=== PATIENT | male | born 1965 | race Two or more races ===

== ENCOUNTER 2017-09-17 16:31 | Inpatient (IN) | payer OTHER ==
[~2017-09-17] VITALS: Ht 175.3 cm; Wt 81.6 kg
[2017-09-17 16:42] VITALS: BP 148/111
[2017-09-17] MEDS ORDERED: Albuterol/Ipratropium 3ml neb HHN ONE (17:00)
--- NOTE | 2017-09-17 17:02 | Emergency Room Report ---
History of Present Illness General Chief Complaint: General Complaint Source: Patient Present Illness HPI Patient is a 52-year-old male who presented after increased cough and difficulty breathing. Patient reports having gradual onset of symptoms. He reports having increased subjective fever as well as increased night sweats. He states that he's been having increased pain to his right flank. He reports having prior history of kidney stones. The patient reports having increased sharp pain. Patient denies vomiting. He reports having taking cough medications which contain Tylenol earlier in the day. Allergies: Coded Allergies: No Known Allergies (Unverified , 09/17/17) Patient History Past Medical History: see triage record Reviewed Nursing Documentation: PMH: Agreed; PSxH: Agreed Nursing Documentation-PMH Past Medical History: No History, Except For Hx Gastrointestinal Problems: No - HERNIA, KIDNEY STONE Review of Systems All Other Systems: negative except mentioned in HPI Physical Exam Vital Signs Date Time Temp Pulse Resp B/P (MAP) Pulse Ox O2 Delivery O2 Flow Rate FiO2 09/17/17 16:33 97.7 97 20 145/94 94 Room Air 97.7 Sp02 EP Interpretation: reviewed, normal General Appearance: normal inspection, well appearing, no apparent distress, alert, GCS 15, non-toxic Head: atraumatic ENT: normal ENT inspection, hearing grossly normal, normal voice Neck: normal inspection, full range of motion, supple, no bony tend Respiratory: normal inspection, lungs clear, normal breath sounds, no respiratory distress, no retraction, no wheezing Cardiovascular #1: regular rate, rhythm, no edema Gastrointestinal: normal inspection, normal bowel sounds, non tender, soft, no guarding, no hernia Genitourinary: no CVA tenderness Musculoskeletal: normal inspection, back normal, normal range of motion Neurologic: normal inspection, alert, responsive, speech normal Psychiatric: normal inspection, judgement/insight normal, mood/affect normal Skin: normal inspection, normal color, no rash Medical Decision Making Diagnostic Impression: Primary Impression: Sepsis Additional Impressions: Right kidney stone Urinary tract infection ER Course patient presented for shortness of breath.Differential included but was not limited to anemia, pneumonia, pneumothorax, myocardial infarction, pericardial effusion, congestive heart failure, acidosis. Because of complexity of patient' s case laboratory testing and imaging studies were ordered.CT of abdomen and pelvis read by radiology showed 12 mm stone in the right renal pelvis without hydronephrosis thickening and distinctness of the wrist the only in the area and bilateral nephrolithiasis too small to characterize attenuation in the left kidney lung bases showed bibasilar atelectasis. The patient was noted to have elevated white blood count. Patient started on IV antibiotics blood cultures are obtained.Dr. Edward Maravilla was contacted for inpatient management. Dr. Jose Roberto Johnson was contacted for urology consult Labs Test 09/17/17 16:40 09/17/17 16:55 Urine Color Pale yellow Urine Appearance Clear Urine pH 6.5 (4.5-8.0) Urine Specific [place] 1.005 (1.005-1.035) Urine Protein 2+ (NEGATIVE) Urine Glucose (UA) Negative (NEGATIVE) Urine Ketones Negative (NEGATIVE) Urine Occult Blood 5+ (NEGATIVE) Urine Nitrite Negative (NEGATIVE) Urine Bilirubin Negative (NEGATIVE) Urine Urobilinogen Normal MG/DL (0.0-1.0) Urine Leukocyte Esterase 2+ (NEGATIVE) Urine RBC 5-10 /HPF (0 - 0) Urine WBC 2-4 /HPF (0 - 0) Urine Squamous Epithelial Cells None /LPF (NONE/OCC) Urine Bacteria Few /HPF (NONE) White Blood Count 19.1 K/UL (4.8-10.8) Red Blood Count 4.94 M/UL (4.70-6.10) Hemoglobin 15.4 G/DL (14.2-18.0) Hematocrit 43.4 % (42.0-52.0) Mean Corpuscular Volume 88 FL (80-99) Mean Corpuscular Hemoglobin 31.2 PG (27.0-31.0) Mean Corpuscular Hemoglobin Concent 35.5 G/DL (32.0-36.0) Red Cell Distribution Width 10.6 % (11.6-14.8) Platelet Count 217 K/UL (150-450) Mean Platelet Volume 7.9 FL (6.5-10.1) Neutrophils (%) (Auto) % (45.0-75.0) Lymphocytes (%) (Auto) % (20.0-45.0) Monocytes (%) (Auto) % (1.0-10.0) Eosinophils (%) (Auto) % (0.0-3.0) Basophils (%) (Auto) % (0.0-2.0) Differential Total Cells Counted 100 Neutrophils % (Manual) 75 % (45-75) Lymphocytes % (Manual) 15 % (20-45) Monocytes % (Manual) 9 % (1-10) Eosinophils % (Manual) 0 % (0-3) Basophils % (Manual) 0 % (0-2) Band Neutrophils 1 % (0-8) Platelet Estimate Adequate Platelet Morphology Normal Red Blood Cell Morphology Normal Sodium Level 136 MMOL/L (136-145) Potassium Level 4.0 MMOL/L (3.5-5.1) Chloride Level 102 MMOL/L (98-107) Carbon Dioxide Level 25 MMOL/L (21-32) Anion Gap 9 mmol/L (5-15) Blood Urea Nitrogen 15 mg/dL (7-18) Creatinine 0.8 MG/DL (0.55-1.30) Estimat Glomerular Filtration Rate > 60 mL/min (>60) Glucose Level 145 MG/DL (74-106) Lactic Acid Level 2.00 mmol/L (0.66-2.22) Calcium Level 9.7 MG/DL (8.5-10.1) Total Bilirubin 0.5 MG/DL (0.2-1.0) Aspartate Amino Transf (AST/SGOT) 28 U/L (15-37) Alanine Aminotransferase (ALT/SGPT) 47 U/L (12-78) Alkaline Phosphatase 78 U/L (46-116) Total Creatine Kinase 323 U/L (26-308) Creatine Kinase MB 1.5 NG/ML (0.0-3.6) Creatine Kinase MB Relative Index 0.4 Troponin I 0.000 ng/mL (0.000-0.056) Total Protein 8.8 G/DL (6.4-8.2) Albumin 3.8 G/DL (3.4-5.0) Globulin 5.0 g/dL Albumin/Globulin Ratio 0.8 (1.0-2.7) Last Vital Signs Date Time Temp Pulse Resp B/P (MAP) Pulse Ox O2 Delivery O2 Flow Rate FiO2 09/17/17 16:33 97.7 97 20 145/94 94 Room Air 97.7 Status: unchanged Disposition: ADMITTED INPATIENT Condition: Serious Scripts Unable to Obtain Active Prescriptions or Reported Meds Cristiano Escobar MD September 17, 2017 17:02
[2017-09-17 17:09] LABS: APPEARANCE,URINE CLEAR; BILIRUBIN, URINE NEGATIVE (NEGATIVE); COLOR,URINE PALE YELLOW; GLUCOSE, URINE (UA) NEGATIVE (NEGATIVE); KETONES,URINE NEGATIVE (NEGATIVE); LEUKOCYTE ESTERASE ,URINE 2+ (NEGATIVE); NITRITE,URINE NEGATIVE (NEGATIVE); PH,URINE 6.5 (4.5-8.0); PROTEIN,URINE 2+ (NEGATIVE); UROBILINOGEN,URINE NORMAL MG/DL (0.0-1.0)
[2017-09-17] MEDS: Isovue-300 100ml vial INJ PRN ×2 (17:13→18:57)
[2017-09-17 17:16] LABS: HEMATOCRIT 43.4 % (42.0-52.0); HEMOGLOBIN 15.4 G/DL (14.2-18.0); MEAN CORPUSCULAR VOLUME 88 FL (80-99); PLATELET COUNT 217 K/UL (150-450); RED BLOOD COUNT 4.94 M/UL (4.70-6.10); RED CELL DISTRIBUTION WIDTH 10.6 % (11.6-14.8); WHITE BLOOD COUNT 19.1 K/UL (4.8-10.8)
[2017-09-17 17:20] LABS: ANION GAP 9 mmol/L (5-15); BLOOD UREA NITROGEN 15 mg/dL (7-18); CALCIUM 9.7 MG/DL (8.5-10.1); CARBON DIOXIDE 25 MMOL/L (21-32); CHLORIDE 102 MMOL/L (98-107); CREATININE 0.8 MG/DL (0.55-1.30); SODIUM 136 MMOL/L (136-145)
[2017-09-17] MEDS ORDERED: cefTRIAXone 1 GM in NS 55 ML IVPB ONE (17:30)
[2017-09-17] MEDS ORDERED: Azithromycin 500 MG in D5W 275 ML IVPB ONE (17:30)
[2017-09-17 17:36] LABS: ALANINE AMINOTRANSFERASE 47 U/L (12-78); ALBUMIN 3.8 G/DL (3.4-5.0); ALBUMIN/GLOBULIN RATIO 0.8 (1.0-2.7); ALKALINE PHOSPHATASE 78 U/L (46-116); ASPARTATE AMINO TRANSFERASE 28 U/L (15-37); BILIRUBIN,TOTAL 0.5 MG/DL (0.2-1.0); CKMB 1.5 NG/ML (0.0-3.6); CREATINE KINASE 323 U/L (26-308)
--- NOTE | 2017-09-17 17:42 | Diagnostic Imaging Report ---
EXAM: XR Chest, 1 View CLINICAL HISTORY: SOB TECHNIQUE: Frontal view of the chest. COMPARISON: No relevant prior studies available. FINDINGS: Lungs: Reduced lung volumes. No consolidation. Patchy more bilateral atelectasis. Pleural space: Unremarkable. No pneumothorax. Heart: Large cardiomediastinal silhouette. Mediastinum: See above. Bones/joints: No acute fracture. IMPRESSION: Reduced lung volumes. No consolidation.
[2017-09-17 18:39] VITALS: BP 125/89
--- NOTE | 2017-09-17 19:21 | Diagnostic Imaging Report ---
EXAM: CT Abdomen and Pelvis With Intravenous Contrast CLINICAL HISTORY: ABD PAIN TECHNIQUE: Axial computed tomography images of the abdomen and pelvis with intravenous contrast. CTDI is 0.15 + 17.25 mGy and DLP is 997 mGy-cm. One or more of the following dose reduction techniques were used: automated exposure control, adjustment of the mA and/or kV according to patient size, use of iterative reconstruction technique. COMPARISON: No relevant prior studies available. FINDINGS: Lung bases: Basilar atelectasis. Mediastinum: Small hiatal hernia. ABDOMEN: Liver: Mild fatty liver. Gallbladder and bile ducts: No calcified stones. No ductal dilation. Pancreas: Unremarkable. Spleen: Unremarkable. Adrenals: Unremarkable. Kidneys and ureters: 12 mm stone in the right renal pelvis without hydronephrosis. Thickening and indistinctness of the urothelium in the area. Bilateral nephrolithiasis. Too small to characterize low attenuation foci in the left kidney. Stomach and bowel: No arline mural thickening. Nonobstructive bowel gas pattern. PELVIS: Appendix: Unremarkable appendix. Bladder: Unremarkable. Reproductive: Unremarkable. ABDOMEN and PELVIS: Intraperitoneal space: Unremarkable. Bones/joints: No acute fracture. Soft tissues: Unremarkable. Vasculature: Unremarkable. No abdominal aortic aneurysm. Lymph nodes: No enlarged lymph nodes. IMPRESSION: 12 mm stone in the right renal pelvis without hydronephrosis. Thickening and indistinctness of the urothelium in the area. Consider inflammatory process/infection. Follow to resolution to exclude other mimics that.
[2017-09-17 20:01] VITALS: BP 117/80
[2017-09-17] MEDS ORDERED: Morphine Sulfate 4mg/ml Inj IVP PRN (20:15)
[2017-09-17 20:30] VITALS: BP 135/79
[2017-09-17] MEDS: Zolpidem 5mg tab ORAL PRN (21:50)
[2017-09-18 00:10] VITALS: BP 108/71
[2017-09-18 04:21] VITALS: BP 112/76
--- NOTE | 2017-09-18 07:51 | History & Physical ---
History and Physical History & Physicial HP dictated # [id number] Edward Maravilla MD September 18, 2017 07:51
[2017-09-18 08:00] VITALS: BP 119/78
[2017-09-18 08:45] LABS: BASOPHILS % (AUTO) 0.3 % (0.0-2.0); EOSINOPHILS % (AUTO) 0.1 % (0.0-3.0); HEMATOCRIT 40.2 % (42.0-52.0); LYMPHOCYTES % (AUTO) 21.2 % (20.0-45.0); MEAN CORPUSCULAR VOLUME 90 FL (80-99); MONOCYTES % (AUTO) 6.9 % (1.0-10.0); NEUTROPHILS % (AUTO) 71.6 % (45.0-75.0); PLATELET COUNT 219 K/UL (150-450); RED BLOOD COUNT 4.47 M/UL (4.70-6.10)
[2017-09-18 09:15] LABS: ALANINE AMINOTRANSFERASE 40 U/L (12-78); ALBUMIN 3.2 G/DL (3.4-5.0); ALBUMIN/GLOBULIN RATIO 0.6 (1.0-2.7); ALKALINE PHOSPHATASE 63 U/L (46-116); ANION GAP 8 mmol/L (5-15); ASPARTATE AMINO TRANSFERASE 25 U/L (15-37); BILIRUBIN,TOTAL 0.5 MG/DL (0.2-1.0); BLOOD UREA NITROGEN 19 mg/dL (7-18); CALCIUM 9.2 MG/DL (8.5-10.1); CARBON DIOXIDE 27 MMOL/L (21-32); CHLORIDE 105 MMOL/L (98-107); CREATININE 0.9 MG/DL (0.55-1.30); POTASSIUM 4.1 MMOL/L (3.5-5.1); SODIUM 140 MMOL/L (136-145)
[2017-09-18] MEDS: Albuterol/Ipratropium 3ml neb HHN SCH ×3 (09:25→20:09)
[2017-09-18 12:00] VITALS: BP 117/80
--- NOTE | 2017-09-18 12:15 | History and Physical Report ---
DATE OF ADMISSION: 09/17/2017 CHIEF COMPLAINT: Cough and shortness of breath. HISTORY OF PRESENT ILLNESS: This is a 52-[facility]-old, [facility] who came with a few days history of cough and difficulty breathing. The patient has also sputum, greenish in color and subjective fevers and night sweats. Also, he has had right flank pain. He states that the pain has been there for months now. He was seen in the emergency room, was found also to have a nonobstructive kidney stone on the CT scan on the right side. This stone was in pelvis and 12.5 millimeter. There was some inflammatory changes in the urothelium in that area. PAST MEDICAL HISTORY: The patient has had previous history of kidney stones, history of umbilical hernia. 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 No history of smoking or alcohol abuse. ALLERGIES: No known drug allergies. REVIEW OF SYSTEMS: Noncontributory except above. PHYSICAL EXAMINATION: GENERAL: The patient is a pleasant male, in no acute distress. VITAL SIGNS: Blood pressure 112/76, pulse 61, temperature 96.6, and respiratory rate is 20. HEENT: Newborn conjunctivae. Anicteric sclerae. NECK: Supple. LUNGS: Coarse breath sounds bilaterally with some expiratory rhonchi. ABDOMEN: Soft and nontender. EXTREMITIES: No cyanosis or edema. LABORATORY FINDINGS: The CBC shows WBC of 19.1, hematocrit 43.4, hemoglobin 15.4, platelets 217,000. Chemistry panel shows serum sodium , potassium 4, chloride 102, CO2 of 25, BUN is 15, creatinine 0.8, blood sugar is 125. ASSESSMENT: This is a 52-year-old, [facility] who is admitted with cough and difficulty breathing, diagnosed with acute bronchitis. He has significant leukocytosis and also sputum production, so bacterial bronchitis is in differential diagnosis. He has also right-sided flank pain and kidney stone with some inflammatory changes surrounding it. PLAN: The patient will be on IV antibiotics, bronchodilators. The patient will be seen by Dr. Kennedy for Pulmonary consultation. Also, I discussed with the ER physician. Apparently, he called Dr. Johnson for Urology. The patient will be followed closely and adjustment will be made in the patient's regimen. Edward Maravilla M.D. DR: AILYN JOB#: [id number] CC: OSCAR
--- NOTE | 2017-09-18 15:47 | Consultation ---
History of Present Illness General Date patient seen: September 18, 2017 Time patient seen: 15:44 Chief Complaint: General Complaint Referring physician: Taiwo Reason for Consultation: Right kidney stone Present Illness HPI 52 yo male with SOB and cough. Also right flank pain and hematuria. Patient noted blood a few days ago and has felt better since. Has passed kidney stones before. Currently feels ok. Allergies: Coded Allergies: No Known Allergies (Unverified , 09/17/17) Medication History Unable to Obtain Active Prescriptions or Reported Meds Patient History History Provided By: Patient Healthcare decision maker Resuscitation status Full Code Advanced Directive on File Past Medical/Surgical History Past Medical/Surgical History: (1) Right kidney stone Review of Systems Constitutional: Denies: no symptoms, see HPI, chills, sweats, fever, malaise, weakness, other All Other Systems: negative except mentioned in HPI Physical Exam General Appearance: no apparent distress HEENT: atraumatic Respiratory/Chest: lungs clear Cardiovascular/Chest: normal rate Abdomen: non tender Neurologic: alert, oriented x 3 Last 24 Hour Vital Signs Date Time Temp Pulse Resp B/P (MAP) Pulse Ox O2 Delivery O2 Flow Rate FiO2 09/18/17 13:28 78 20 98 Room Air 21 09/18/17 13:16 78 20 95 Room Air 21 09/18/17 12:00 97.2 75 18 117/80 94 Room Air 97.2 09/18/17 09:32 77 20 99 Room Air 21 09/18/17 09:31 76 22 Room Air 21 09/18/17 09:25 73 22 97 Room Air 21 09/18/17 08:00 97.2 75 18 119/78 94 Room Air 97.2 09/18/17 04:21 96.6 61 20 112/76 96 Room Air 96.6 09/18/17 00:10 97.3 73 20 108/71 95 Room Air 97.3 09/17/17 20:30 97.3 77 20 135/79 97 Room Air 97.3 09/17/17 20:30 98.1 75 12 117/80 97 Room Air 98.1 09/17/17 20:01 98.1 75 12 117/80 97 Room Air 98.1 09/17/17 18:39 97.7 89 19 125/89 99 Room Air 97.7 09/17/17 17:38 89 21 96 Room Air 09/17/17 17:22 71 14 97 Room Air 09/17/17 17:20 71 14 Room Air 09/17/17 16:42 97.7 94 14 148/111 99 Room Air 97.7 09/17/17 16:33 97.7 97 20 145/94 94 Room Air 97.7 Intake and Output 09/17/17 09/18/17 19:00 07:00 Intake Total 686.25 ml Balance 686.25 ml IV Total 686.25 ml # Voids 1 1 Laboratory Tests Test 09/17/17 16:40 09/17/17 16:55 09/18/17 06:15 Urine Color Pale yellow Urine Appearance Clear Urine pH 6.5 (4.5-8.0) Urine Specific [place] 1.005 (1.005-1.035) Urine Protein 2+ (NEGATIVE) H Urine Glucose (UA) Negative (NEGATIVE) Urine Ketones Negative (NEGATIVE) Urine Occult Blood 5+ (NEGATIVE) H Urine Nitrite Negative (NEGATIVE) Urine Bilirubin Negative (NEGATIVE) Urine Urobilinogen Normal MG/DL (0.0-1.0) Urine Leukocyte Esterase 2+ (NEGATIVE) H Urine RBC 5-10 /HPF (0 - 0) H Urine WBC 2-4 /HPF (0 - 0) Urine Squamous Epithelial Cells None /LPF (NONE/OCC) Urine Bacteria Few /HPF (NONE) White Blood Count 19.1 K/UL (4.8-10.8) H 15.0 K/UL (4.8-10.8) H Red Blood Count 4.94 M/UL (4.70-6.10) 4.47 M/UL (4.70-6.10) L Hemoglobin 15.4 G/DL (14.2-18.0) 14.0 G/DL (14.2-18.0) L Hematocrit 43.4 % (42.0-52.0) 40.2 % (42.0-52.0) L Mean Corpuscular Volume 88 FL (80-99) 90 FL (80-99) Mean Corpuscular Hemoglobin 31.2 PG (27.0-31.0) H 31.4 PG (27.0-31.0) H Mean Corpuscular Hemoglobin Concent 35.5 G/DL (32.0-36.0) 34.8 G/DL (32.0-36.0) Red Cell Distribution Width 10.6 % (11.6-14.8) L 11.0 % (11.6-14.8) L Platelet Count 217 K/UL (150-450) 219 K/UL (150-450) Mean Platelet Volume 7.9 FL (6.5-10.1) 7.4 FL (6.5-10.1) Neutrophils (%) (Auto) % (45.0-75.0) 71.6 % (45.0-75.0) Lymphocytes (%) (Auto) % (20.0-45.0) 21.2 % (20.0-45.0) Monocytes (%) (Auto) % (1.0-10.0) 6.9 % (1.0-10.0) Eosinophils (%) (Auto) % (0.0-3.0) 0.1 % (0.0-3.0) Basophils (%) (Auto) % (0.0-2.0) 0.3 % (0.0-2.0) Differential Total Cells Counted 100 Neutrophils % (Manual) 75 % (45-75) Lymphocytes % (Manual) 15 % (20-45) L Monocytes % (Manual) 9 % (1-10) Eosinophils % (Manual) 0 % (0-3) Basophils % (Manual) 0 % (0-2) Band Neutrophils 1 % (0-8) Platelet Estimate Adequate Platelet Morphology Normal Red Blood Cell Morphology Normal Sodium Level 136 MMOL/L (136-145) 140 MMOL/L (136-145) Potassium Level 4.0 MMOL/L (3.5-5.1) 4.1 MMOL/L (3.5-5.1) Chloride Level 102 MMOL/L (98-107) 105 MMOL/L (98-107) Carbon Dioxide Level 25 MMOL/L (21-32) 27 MMOL/L (21-32) Anion Gap 9 mmol/L (5-15) 8 mmol/L (5-15) Blood Urea Nitrogen 15 mg/dL (7-18) 19 mg/dL (7-18) H Creatinine 0.8 MG/DL (0.55-1.30) 0.9 MG/DL (0.55-1.30) Estimat Glomerular Filtration Rate > 60 mL/min (>60) > 60 mL/min (>60) Glucose Level 145 MG/DL (74-106) H 106 MG/DL (74-106) Lactic Acid Level 2.00 mmol/L (0.66-2.22) Calcium Level 9.7 MG/DL (8.5-10.1) 9.2 MG/DL (8.5-10.1) Total Bilirubin 0.5 MG/DL (0.2-1.0) 0.5 MG/DL (0.2-1.0) Aspartate Amino Transf (AST/SGOT) 28 U/L (15-37) 25 U/L (15-37) Alanine Aminotransferase (ALT/SGPT) 47 U/L (12-78) 40 U/L (12-78) Alkaline Phosphatase 78 U/L (46-116) 63 U/L (46-116) Total Creatine Kinase 323 U/L (26-308) H Creatine Kinase MB 1.5 NG/ML (0.0-3.6) Creatine Kinase MB Relative Index 0.4 Troponin I 0.000 ng/mL (0.000-0.056) Total Protein 8.8 G/DL (6.4-8.2) H 8.2 G/DL (6.4-8.2) Albumin 3.8 G/DL (3.4-5.0) 3.2 G/DL (3.4-5.0) L Globulin 5.0 g/dL 5.0 g/dL Albumin/Globulin Ratio 0.8 (1.0-2.7) L 0.6 (1.0-2.7) L Hemoglobin A1c 6.4 % (4.3-6.0) H Prostate Specific Antigen 1.64 ng/mL (0.13-4.0) Height (Feet): 5 Height (Inches): 9.00 Weight (Pounds): 180 Medications Current Medications Medications (Trade) Dose Ordered Sig/Isak Route PRN Reason Start Time Stop Time Status Last Admin Dose Admin Albuterol/ Ipratropium (Albuterol/ Ipratropium) 3 ml Q6HRT HHN 09/18/17 07:45 09/23/17 07:44 09/18/17 13:16 Ceftriaxone Sodium 1 gm/ Dextrose 55 ml @ 110 mls/hr Q24H IVPB 09/18/17 18:00 09/25/17 17:59 Dextrose (Dextrose 50%) 25 ml STAT PRN IV Hypoglycemia 09/17/17 20:15 10/17/17 20:14 Dextrose (Dextrose 50%) 50 ml STAT PRN IV Hypoglycemia 09/17/17 20:15 10/17/17 20:14 Iopamidol (Isovue-300 100ml) 100 ml NOW PRN INJ Radiology Procedure 09/17/17 17:00 Magnesium Hydroxide (Mom) 30 ml HSPRN PRN ORAL Constipation 09/17/17 20:15 10/17/17 20:14 Morphine Sulfate (Morphine Sulfate) 4 mg Q3H PRN IVP Severe Pain (Pain Scale 7-10) 09/17/17 20:15 09/24/17 20:14 Ondansetron HCl (Zofran) 4 mg Q6H PRN IVP Nausea & Vomiting 09/17/17 20:15 10/17/17 20:14 Sodium Chloride 1,000 ml @ 75 mls/hr [id number] IVLG 09/17/17 21:45 10/17/17 21:44 09/18/17 06:59 Zolpidem Tartrate (Ambien) 5 mg HSPRN PRN ORAL Insomnia 09/17/17 21:45 09/24/17 21:44 09/17/17 21:[address]: right 12 mm renal pelvis stone, NO hydro Assessment/Plan Status: stable Assessment/Plan 52 yo male with multiple complaints including cough/SOB. Imaging reveals right kidney stone medium to large size. No hydronephrosis noted. It is possible patient recently passed a smaller stone to explain acute increase in right abdominal pain and hematuria recently. Currently, pain is easy to control. CT shows no hydronephrosis. I do not believe stone is causing acute obstruction at this time. Not likely etiology for pulmonary complaints either. 1. no intervention 2. strongly recommend elective lithotripsy at some point in future on right kidney stone Jose Roberto Johnson M.D. September 18, 2017 15:47
[2017-09-18 16:00] VITALS: BP 124/76
[2017-09-18] MEDS: cefTRIAXone 1 GM in D5W 55 ML IVPB SCH (17:10)
--- NOTE | 2017-09-18 17:36 | Consultation ---
Consult Note Consult Note PULMONARY CONSULTATION Referring physician: Edward Maravilla MD Reason for consultation: Bronchitis HPI: 52 M non-smoker no PMHx x nephrolithiasis p/w 5 days of subjective fevers, cough productive of yellow/green phlegm, R sided flank pain, N no V, no D/C, no CP, + SOB, + wheezing. No ill contacts, No T/E/D. 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 Thickening and indistinctness of the urothelium in the area. Consider inflammatory process/infection. Follow to resolution to exclude other mimics that. Assessment/Plan ASSESSMENT: * URI/tracheobronchitis * Nephrolithiasis without hydronephrosis * Leukocytosis * Elevated HbA1c PLAN: * Optimize pulmonary hygiene/mobilize as tolerated * Supportive care * RTC and PRN HHN's * Continue CTX (D1), add Azithro (D1) * F/u Cx's * IVF hydration * F/U renal and recs, outpatient cysto/litho * DVT Px: SCD's * FC Jeromy Hutchins MD, [facility] Pulmonary & Critical Care Medicine JEROMY HUTCHINS M.D. September 18, 2017 17:36
[2017-09-18] MEDS: guaiFENesin 100mg/5ml Liq ud ORAL PRN (17:44)
[2017-09-18] MEDS: guaiFENesin ER 600mg tab ORAL SCH (17:44)
[2017-09-18] MEDS ORDERED: Azithromycin 250mg tab ORAL SCH (18:00)
[2017-09-18 19:44] VITALS: BP 116/77
[2017-09-18] MEDS: Heparin 5000 units/ml inj SUBQ SCH (21:00)
[2017-09-18] MEDS: Zolpidem 5mg tab ORAL PRN (21:35)
[2017-09-19 00:30] VITALS: BP 108/75
[2017-09-19] MEDS: Albuterol/Ipratropium 3ml neb HHN SCH ×4 (00:46→19:00)
[2017-09-19 04:00] VITALS: BP 104/69
[2017-09-19 08:00] VITALS: BP 105/65
[2017-09-19] MEDS: guaiFENesin ER 600mg tab ORAL SCH ×2 (08:28→17:37)
[2017-09-19] MEDS: Heparin 5000 units/ml inj SUBQ SCH ×2 (08:29→20:42)
[2017-09-19] MEDS: guaiFENesin 100mg/5ml Liq ud ORAL PRN ×2 (08:31→13:43)
[2017-09-19] MEDS: Milk of Magnesia 30ml Ud ORAL PRN (08:31)
[2017-09-19] MEDS ORDERED: Albuterol/Ipratropium 3ml neb ONE (08:56)
--- NOTE | 2017-09-19 10:09 | General Progress Note ---
Assessment/Plan Problem List: (1) Right kidney stone ICD Codes: N20.0 - Calculus of kidney SNOMED: 62687118 (2) Sepsis ICD Codes: A41.9 - Sepsis, unspecified organism SNOMED: 16460885 (3) Acute bronchitis ICD Codes: J20.9 - Acute bronchitis, unspecified SNOMED: 66104888 Assessment/Plan abxs bronchodilators Discussed with pt and familt in datail pain meds PRN Subjective Allergies: Coded Allergies: No Known Allergies (Unverified , 09/17/17) Subjective worried about his kidney stone Objective Last 24 Hour Vital Signs Date Time Temp Pulse Resp B/P (MAP) Pulse Ox O2 Delivery O2 Flow Rate FiO2 09/19/17 09:23 84 20 98 Room Air 21 09/19/17 08:58 71 18 Room Air 21 09/19/17 08:58 71 18 97 Room Air 21 09/19/17 08:00 97.7 73 18 105/65 95 Room Air 97.7 09/19/17 04:00 97.7 68 21 104/69 95 97.7 09/19/17 00:54 76 20 99 Room Air 21 09/19/17 00:46 77 20 96 Room Air 21 09/19/17 00:30 97.3 60 20 108/75 96 Room Air 97.3 09/18/17 20:27 72 20 99 Room Air 21 09/18/17 20:11 69 20 Room Air 21 09/18/17 20:10 69 20 96 Room Air 21 09/18/17 19:44 98.1 67 20 116/77 97 Room Air 98.1 09/18/17 16:00 97.7 66 20 124/76 93 Room Air 97.7 09/18/17 13:28 78 20 98 Room Air 21 09/18/17 13:16 78 20 95 Room Air 21 09/18/17 12:00 97.2 75 18 117/80 94 Room Air 97.2 Intake and Output 09/18/17 09/19/17 19:00 07:00 Intake Total 1535 ml 450 ml Balance 1535 ml 450 ml Intake Oral 600 ml IV Total 935 ml 450 ml # Voids 4 1 Height (Feet): 5 Height (Inches): 9.00 Weight (Pounds): 180 Cardiovascular: normal rate Respiratory/Chest: lungs clear Abdomen: soft Rahban,Edward MD September 19, 2017 10:09
[2017-09-19 12:00] VITALS: BP 109/70
--- NOTE | 2017-09-19 13:53 | Cardiology Report ---
APPROVED REPORT EKG Measurement Heart [id number] Normal sinus rhythm Normal ECG
[2017-09-19 15:55] VITALS: BP 104/68
[2017-09-19] MEDS: cefTRIAXone 1 GM in D5W 55 ML IVPB SCH (17:38)
--- NOTE | 2017-09-19 19:53 | Pulmonology Progress Note ---
Assessment/Plan Problems: (1) Acute bronchitis (2) Sepsis (3) Right kidney stone (4) Urinary tract infection Assessment/Plan ASSESSMENT: * URI/tracheobronchitis * Nephrolithiasis without hydronephrosis * Leukocytosis * Elevated HbA1c PLAN: * Optimize pulmonary hygiene/mobilize as tolerated * Supportive care * RTC and PRN HHN's * Continue CTX (D2) and Azithro (D2) * F/u Cx's * IVF hydration * F/U renal and recs, outpatient cysto/litho * DVT Px: SCD's * FC Jeromy Kennedy MD, [facility] Pulmonary & Critical Care Medicine Subjective Allergies: Coded Allergies: No Known Allergies (Unverified , 09/17/17) Subjective AFVSS, stable on RA Less cough, no SOB, no F/C, still with flank pain Objective Last 24 Hour Vital Signs Date Time Temp Pulse Resp B/P (MAP) Pulse Ox O2 Delivery O2 Flow Rate FiO2 09/19/17 15:55 97.7 75 18 104/68 94 97.7 09/19/17 14:18 84 16 92 Room Air 21 09/19/17 13:52 74 20 93 Room Air 21 09/19/17 12:00 98.2 66 18 109/70 95 Room Air 98.2 09/19/17 09:23 84 20 98 Room Air 21 09/19/17 08:58 71 18 Room Air 21 09/19/17 08:58 71 18 97 Room Air 21 09/19/17 08:00 97.7 73 18 105/65 95 Room Air 97.7 09/19/17 04:00 97.7 68 21 104/69 95 97.7 09/19/17 00:54 76 20 99 Room Air 21 09/19/17 00:46 77 20 96 Room Air 21 09/19/17 00:30 97.3 60 20 108/75 96 Room Air 97.3 09/18/17 20:27 72 20 99 Room Air 21 09/18/17 20:11 69 20 Room Air 21 09/18/17 20:10 69 20 96 Room Air 21 Intake and Output 09/18/17 09/19/17 19:00 07:00 Intake Total 1535 ml 450 ml Balance 1535 ml 450 ml Intake Oral 600 ml IV Total 935 ml 450 ml # Voids 4 1 General Appearance: WD/WN, no acute distress HEENT: normocephalic, atraumatic, anicteric, mucous membranes moist Respiratory/Chest: chest wall non-tender, lungs clear, normal breath sounds, no respiratory distress Cardiovascular: normal peripheral pulses, normal rate, regular rhythm Abdomen: normal bowel sounds, soft, non tender, no organomegaly, non distended , no mass Extremities: no cyanosis, no clubbing, no edema Microbiology Date/Time Source Procedure Growth Status 09/17/17 17:00 Blood Blood Culture - Preliminary NO GROWTH AFTER 24 HOURS Resulted 09/17/17 16:55 Blood Blood Culture - Preliminary NO GROWTH AFTER 24 HOURS Resulted Current Medications Medications (Trade) Dose Ordered Sig/Isak Route PRN Reason Start Time Stop Time Status Last Admin Dose Admin Albuterol/ Ipratropium (Albuterol/ Ipratropium) 3 ml Q6HRT HHN 09/18/17 07:45 09/23/17 07:44 09/19/17 13:52 Ceftriaxone Sodium 1 gm/ Dextrose 55 ml @ 110 mls/hr Q24H IVPB 09/18/17 18:00 09/25/17 17:59 09/19/17 17:38 Dextrose (Dextrose 50%) 25 ml STAT PRN IV Hypoglycemia 09/17/17 20:15 10/17/17 20:14 Dextrose (Dextrose 50%) 50 ml STAT PRN IV Hypoglycemia 09/17/17 20:15 10/17/17 20:14 Guaifenesin (Mucinex ER) 600 mg TWICE A DAY ORAL 09/18/17 18:00 10/18/17 17:59 09/19/17 17:37 Guaifenesin (Robitussin) 100 mg Q4H PRN ORAL For Cough 09/18/17 18:00 10/18/17 17:59 09/19/17 13:43 Heparin Sodium (Porcine) (Heparin 5000 units/ml) 5,000 units EVERY 12 HOURS SUBQ 09/18/17 21:00 10/18/17 20:59 09/19/17 08:29 Iopamidol (Isovue-300 100ml) 100 ml NOW PRN INJ Radiology Procedure 09/17/17 17:00 Magnesium Hydroxide (Mom) 30 ml HSPRN PRN ORAL Constipation 09/17/17 20:15 10/17/17 20:14 09/19/17 08:31 Morphine Sulfate (Morphine Sulfate) 4 mg Q3H PRN IVP Severe Pain (Pain Scale 7-10) 09/17/17 20:15 09/24/17 20:14 Ondansetron HCl (Zofran) 4 mg Q6H PRN IVP Nausea & Vomiting 09/17/17 20:15 10/17/17 20:14 Sodium Chloride 1,000 ml @ 75 mls/hr [id number] IVLG 09/17/17 21:45 10/17/17 21:44 09/19/17 13:43 Zolpidem Tartrate (Ambien) 5 mg HSPRN PRN ORAL Insomnia 09/17/17 21:45 09/24/17 21:44 09/18/17 21:35 JEROMY KENNEDY M.D. September 19, 2017 19:53
[2017-09-19 20:48] VITALS: BP 133/79
[2017-09-20] VITALS: BP 114/72
[2017-09-20] MEDS: Albuterol/Ipratropium 3ml neb HHN SCH ×3 (01:04→12:46)
[2017-09-20 04:00] VITALS: BP 116/70
[2017-09-20 07:43] VITALS: BP 110/72
[2017-09-20] MEDS: guaiFENesin ER 600mg tab ORAL SCH (08:26)
[2017-09-20] MEDS: Heparin 5000 units/ml inj SUBQ SCH (08:28)
[2017-09-20] MEDS: Milk of Magnesia 30ml Ud ORAL PRN (08:44)
[2017-09-20] MEDS ORDERED: Azithromycin 250mg tab ORAL SCH (09:00)
--- NOTE | 2017-09-20 10:34 | Pulmonology Progress Note ---
Assessment/Plan Problems: (1) Acute bronchitis (2) Sepsis (3) Right kidney stone (4) Urinary tract infection Assessment/Plan ASSESSMENT: * URI/tracheobronchitis * Nephrolithiasis without hydronephrosis * Leukocytosis * Elevated HbA1c PLAN: * Optimize pulmonary hygiene/mobilize as tolerated * Supportive care * RTC and PRN HHN's * Continue CTX (D3) and Azithro (D3) ---> would D/C on PO Azithro to complete a 5 day course * F/u Cx's * F/U renal and recs, outpatient cysto/litho * DVT Px: SCD's * FC Jeromy Kennedy MD, [facility] Pulmonary & Critical Care Medicine Subjective Allergies: Coded Allergies: No Known Allergies (Unverified , 09/17/17) Subjective AFVSS, stable on RA No cough, no SOB, no F/C, less flank pain Objective Last 24 Hour Vital Signs Date Time Temp Pulse Resp B/P (MAP) Pulse Ox O2 Delivery O2 Flow Rate FiO2 09/20/17 08:05 73 16 100 Room Air 21 09/20/17 07:58 72 18 98 Room Air 21 09/20/17 07:58 72 18 Room Air 21 09/20/17 07:43 97.7 77 16 110/72 95 Room Air 97.7 09/20/17 04:00 96 Room Air 09/20/17 04:00 97.9 62 17 116/70 96 97.9 09/20/17 01:13 63 16 100 Room Air 21 09/20/17 01:05 62 16 96 Room Air 21 09/20/17 00:00 97.7 58 16 114/72 95 97.7 09/20/17 00:00 95 Room Air 09/19/17 20:48 98.1 64 16 133/79 97 98.1 09/19/17 20:48 97 Room Air 09/19/17 20:15 62 20 98 Room Air 21 09/19/17 20:15 62 18 Room Air 21 09/19/17 20:05 Room Air 21 09/19/17 15:55 97.7 75 18 104/68 94 97.7 09/19/17 14:18 84 16 92 Room Air 21 09/19/17 13:52 74 20 93 Room Air 21 09/19/17 12:00 98.2 66 18 109/70 95 Room Air 98.2 Intake and Output 09/19/17 09/20/17 19:00 07:00 Intake Total 1705 ml 900 ml Balance 1705 ml 900 ml Intake Oral 900 ml IV Total 805 ml 900 ml # Voids 3 1 # Bowel Movements 1 General Appearance: WD/WN, no acute distress HEENT: normocephalic, atraumatic, anicteric, mucous membranes moist Respiratory/Chest: chest wall non-tender, lungs clear, normal breath sounds, no respiratory distress, no accessory muscle use Cardiovascular: normal peripheral pulses, normal rate, regular rhythm Abdomen: normal bowel sounds, soft, non tender, no organomegaly, non distended , no mass Extremities: no cyanosis, no clubbing, no edema Microbiology Date/Time Source Procedure Growth Status 09/17/17 17:00 Blood Blood Culture - Preliminary NO GROWTH AFTER 48 HOURS Resulted 09/17/17 16:55 Blood Blood Culture - Preliminary NO GROWTH AFTER 48 HOURS Resulted Current Medications Medications (Trade) Dose Ordered Sig/Isak Route PRN Reason Start Time Stop Time Status Last Admin Dose Admin Albuterol/ Ipratropium (Albuterol/ Ipratropium) 3 ml Q6HRT HHN 09/18/17 07:45 09/23/17 07:44 09/20/17 07:56 Azithromycin (Zithromax) 250 mg DAILY ORAL 09/20/17 09:00 09/27/17 23:59 09/20/17 08:26 Ceftriaxone Sodium 1 gm/ Dextrose 55 ml @ 110 mls/hr Q24H IVPB 09/18/17 18:00 09/25/17 17:59 09/19/17 17:38 Dextrose (Dextrose 50%) 25 ml STAT PRN IV Hypoglycemia 09/17/17 20:15 10/17/17 20:14 Dextrose (Dextrose 50%) 50 ml STAT PRN IV Hypoglycemia 09/17/17 20:15 10/17/17 20:14 Guaifenesin (Mucinex ER) 600 mg TWICE A DAY ORAL 09/18/17 18:00 10/18/17 17:59 09/20/17 08:26 Guaifenesin (Robitussin) 100 mg Q4H PRN ORAL For Cough 09/18/17 18:00 10/18/17 17:59 09/19/17 13:43 Heparin Sodium (Porcine) (Heparin 5000 units/ml) 5,000 units EVERY 12 HOURS SUBQ 09/18/17 21:00 10/18/17 20:59 09/20/17 08:28 Iopamidol (Isovue-300 100ml) 100 ml NOW PRN INJ Radiology Procedure 09/17/17 17:00 Magnesium Hydroxide (Mom) 30 ml HSPRN PRN ORAL Constipation 09/17/17 20:15 10/17/17 20:14 09/20/17 08:44 Morphine Sulfate (Morphine Sulfate) 4 mg Q3H PRN IVP Severe Pain (Pain Scale 7-10) 09/17/17 20:15 09/24/17 20:14 Ondansetron HCl (Zofran) 4 mg Q6H PRN IVP Nausea & Vomiting 09/17/17 20:15 10/17/17 20:14 Sodium Chloride 1,000 ml @ 75 mls/hr [id number] IVLG 09/17/17 21:45 10/17/17 21:44 09/20/17 03:55 Zolpidem Tartrate (Ambien) 5 mg HSPRN PRN ORAL Insomnia 09/17/17 21:45 09/24/17 21:44 09/18/17 21:35 JEROMY KENNEDY M.D. September 20, 2017 10:34
[2017-09-20 12:00] VITALS: BP 122/72
[2017-09-20] MEDS ORDERED: SODIUM CHLORIDE IVF (14:54)
--- NOTE | 2017-09-20 15:05 | General Progress Note ---
Assessment/Plan Problem List: (1) Right kidney stone ICD Codes: N20.0 - Calculus of kidney SNOMED: 57983013 (2) Sepsis ICD Codes: A41.9 - Sepsis, unspecified organism SNOMED: 44405652 (3) Acute bronchitis ICD Codes: J20.9 - Acute bronchitis, unspecified SNOMED: 46955226 Assessment/Plan DC on Zithromax toda pt will follow with his PMD reg elevated HemA1C wants to lose more wt Subjective Allergies: Coded Allergies: No Known Allergies (Unverified , 09/17/17) Subjective feels much better Objective Last 24 Hour Vital Signs Date Time Temp Pulse Resp B/P (MAP) Pulse Ox O2 Delivery O2 Flow Rate FiO2 09/20/17 12:53 62 18 99 Room Air 21 09/20/17 12:46 62 18 98 Room Air 21 09/20/17 08:05 73 16 100 Room Air 21 09/20/17 07:58 72 18 98 Room Air 21 09/20/17 07:58 72 18 Room Air 21 09/20/17 07:43 97.7 77 16 110/72 95 Room Air 97.7 09/20/17 04:00 96 Room Air 09/20/17 04:00 97.9 62 17 116/70 96 97.9 09/20/17 01:13 63 16 100 Room Air 21 09/20/17 01:05 62 16 96 Room Air 21 09/20/17 00:00 97.7 58 16 114/72 95 97.7 09/20/17 00:00 95 Room Air 09/19/17 20:48 98.1 64 16 133/79 97 98.1 09/19/17 20:48 97 Room Air 09/19/17 20:15 62 20 98 Room Air 21 09/19/17 20:15 62 18 Room Air 21 09/19/17 20:05 Room Air 21 09/19/17 15:55 97.7 75 18 104/68 94 97.7 Intake and Output 09/19/17 09/20/17 19:00 07:00 Intake Total 1705 ml 900 ml Balance 1705 ml 900 ml Intake Oral 900 ml IV Total 805 ml 900 ml # Voids 3 1 # Bowel Movements 1 Height (Feet): 5 Height (Inches): 9.00 Weight (Pounds): 180 Edward Maravilla MD September 20, 2017 15:05
[2017-09-20] MEDS ORDERED: ZITHROMAX250 MG ORAL (15:55)
[2017-09-20 16:00] VITALS: BP 104/70
--- NOTE | 2017-09-22 11:39 | Discharge Summary ---
Discharge Summary Discharge Summary _ DATE OF ADMISSION: 09/17/2017 DATE OF DISCHARGE: 09/20/2017 REASON FOR ADMISSION: 52 years old male with past history of kidney stones presented with increased cough and difficulty breathing. Patient reported gradual onset of symptoms. He reported subjective fevers and night sweats. Patient also reported pain in the right flank. He denied vomiting. Upon evaluation in emergency room vital signs were stable. WBC 19.1. stable hemoglobin and hematocrit. troponin negative. lactic acid 2.0, stable renal parameters. Chest x-ray revealed no acute cardiopulmonary pathology but showed reduced lung volumes. CT of the abdomen and pelvis revealed 12 mm stone in the right renal pelvis without hydronephrosis. Urinalysis showed hematuria and few bacteria. Patient admitted with diagnosis of sepsis, right kidney stone ,acute bronchitis CONSULTANTS: pulmonary Dr. Kennedy Urologist Dr. Johnson [facility] COURSE: Patient admitted to medical surgical floor. Patient started on IV hydration and empiric antibiotic. Pulmonology and urology consults were requested. Supplemental oxygen provided as needed to keep pulse oximetry above 92%. Pulmonary toilet around the clock and as needed provided with bronchodilator. [employer] closely followed. According to script girl , patient had upper respiratory infection versus tracheobronchitis. Chest x-ray revealed no acute cardiopulmonary pathology . Antitussive provided as needed. DVT prophylaxis provided. Patient started on Zithromax and to complete 5 days course upon discharge. Blood cultures were negative. Leukocytosis trended down, patient was afebrile. Urologist seen and evaluated the patient. Per urologist,no interventions were necessary at this time. Imaging revealed right kidney stone moderate to large size but no hydronephrosis. Per urologist, patient possibly recently passed a small stone which may explain acute increase in right abdominal pain and hematuria. Per urologist, stone did not cause any acute obstruction at this time . He strongly recommended elective lithotripsy at some point in the future on the right kidney stone. Patient noted to have elevated hemoglobin A1c 6.4 . Patient to follow-up with his primary care provider . Pain was addressed and controlled. Patient was stable for discharge home to complete antibiotic course FINAL DIAGNOSES: Probably sepsis Right nephrolithiasis without hydronephrosis Acute bronchitis URI Possible tracheobronchitis Elevated HgA1c DISCHARGE MEDICATIONS: See Medication Reconciliation list. DISCHARGE INSTRUCTIONS: Patient was discharged home. Patient was counseled to strong strongly consider lithotripsy. Patient to follow-up with the primary care provider for elevated hemoglobin A1c. I have been assigned to dictate discharge summary for this account. I was not involved in the patient's management. Janneth Vásquez NP September 22, 2017 11:39
== END 2017-09-20 17:15 | disposition home or self-care (01) | DRG 720 ==
LOC: EMR 18:07 → 4W 18:11 → EDBEDREQ 18:59
DX: A41.9 Sepsis, unspecified organism (principal); N39.0 Urinary tract infection, site not specified; J20.9 Acute bronchitis, unspecified; N20.0 Calculus of kidney; J06.9 Acute upper respiratory infection, unspecified
CPT/HCPCS: 36415; 71045; 74177; 80053; 81003; 82550; 82553; 83036; 83605; 84153; 84484; 85007; 85025; 87040; 93005; 94640; 94664; 99285; J7620